=== PATIENT | male | born 1995 | race Caucasian/White ===

== ENCOUNTER 2016-11-05 02:12 | Emergency (ER) | payer OTHER ==
[~2016-11-05] VITALS: Ht 185.4 cm; Wt 70.5 kg
[2016-11-05 02:15] VITALS: Ht 185.4 cm; Wt 70.5 kg
[2016-11-05] MEDS ORDERED: SOD CHLORIDE 0.9% 1,000 ML IV STA (02:18)
[2016-11-05] MEDS ORDERED: ADENOSINE 6 ML ONE (02:28)
[2016-11-05] MEDS ORDERED: ADENOSINE 6 MG INJ IV ONE (02:30)
[2016-11-05] MEDS ORDERED: METOPROLOL 5 MG INJ ONE (02:34)
--- NOTE | 2016-11-05 02:57 | RADRPT ---
PROCEDURE: XR Chest. CLINICAL INDICATION: Chest pain. TECHNIQUE: AP Portable chest. COMPARISON: No pertinent prior examinations were submitted for comparison. FINDINGS: Defibrillator pad overlies the medial left upper chest. The cardiomediastinal silhouette is normal. The aorta is normal. No focal consolidation, pleural eff usion or pneumothorax is seen. The osseous structures are intact. IMPRESSION: No radiographic evidence of acute cardiopulmonary disease. Physician Indu Date Time Electronically viewed and signed by Reji Pascual Physician on 11/05/2016 02:57 CS/
[2016-11-05] MEDS ORDERED: METOPROLOL 5 MG INJ IV ONE (03:00)
[2016-11-05 03:07] LABS: BASOPHILS % 0.2 % (0.0-2.0); EOSINOPHILS # 0.1 10^3/ul (0.0-0.5); EOSINOPHILS % 0.7 % (0.0-7.0); HEMATOCRIT 46.3 % (42.0-52.0); LYMPHOCYTES # 4.4 10^3/ul (0.8-2.9); LYMPHOCYTES % 31.9 % (18.0-55.0); MEAN CORPUSCULAR HEMOGLOBIN 29.3 pg (29.0-33.0); MEAN CORPUSCULAR HGB CONC 34.6 g/dl (32.0-37.0); MEAN CORPUSCULAR VOLUME 84.8 fl (72.0-104.0); MEAN PLATELET VOLUME 10.2 fl (7.4-10.4); MONOCYTE # 0.5 10^3/ul (0.3-0.9); MONOCYTES % 3.6 % (0.0-13.0); NEUTROPHIL # 8.7 10^3/ul (1.6-7.5); NEUTROPHILS % 63.3 % (30.0-74.0); PLATELET COUNT 325 10^3/UL (140-415); RED BLOOD COUNT 5.46 10^6/ul (4.70-6.10); RED CELL DISTRIBUTION WIDTH 11.9 % (11.5-14.5); WHITE BLOOD COUNT 13.7 10^3/ul (4.8-10.8)
[2016-11-05 03:25] LABS: ALANINE AMINOTRANSFERASE 34 IU/L (13-69); ALBUMIN 4.9 g/dl (3.3-4.9); ALBUMIN/GLOBULIN RATIO 1.63; ALKALINE PHOSPHATASE 60 IU/L (42-121); ANION GAP 14 (8-16); ASPARTATE AMINO TRANSFERASE 22 IU/L (15-46); BLOOD UREA NITROGEN 20 mg/dl (7-20); CARBON DIOXIDE 28 mmol/L (21-31); CHLORIDE 104 mmol/L (97-110); CREATININE 1.27 mg/dl (0.61-1.24); GLUCOSE 173 mg/dl (70-220); POTASSIUM 3.2 mmol/L (3.5-5.1); SODIUM 143 mmol/L (135-144); TOTAL PROTEIN 7.9 g/dl (6.1-8.1)
[2016-11-05 03:40] LABS: B-TYPE NATRIURETIC PEPTIDE 36 PG/ML (0-125)
[2016-11-05 04:16] LABS: TROPONIN-I < 0.012 ng/ml (0.00-0.12)
[2016-11-05 04:23] LABS: BILIRUBIN,INDIRECT 0.9 mg/dl (0-1.1); BILIRUBIN,TOTAL 0.9 mg/dl (0.2-1.3)
--- NOTE | 2016-11-05 05:20 | ERD ---
ER Documentation Chief Complaint Date/Time DATE: 11/05/16 TIME: 05:18 Chief Complaint KATHERIN RA90 from home,chest pressure nonradiating pain HPI This is a 21-year-old male brought in by rescue has had palpitations on and off for the past hour. Rescue felt patient was in SVT but the Valsalva that it was able to retell. No chills. No shortness of breath no dizziness. Patient has had similar episodes in the past but has not come to the hospital for it. This episode started 1 hour ago lasted for approximately 20 minutes prior to EMS arrival ROS All systems reviewed and are negative except as per history of present illness. Allergies Allergies: Coded Allergies: No Known Allergy (Unverified , 11/05/16) PMhx/Soc Medical and Surgical Hx: pt denies Medical Hx History of Surgery: Yes (appendectomy) Anesthesia Reaction: No Hx Alcohol Use: No Hx Substance Use: Yes (marijuana) Hx Tobacco Use: No Smoking Status: Never smoker Physical Exam Vitals Vital Signs Date Time Temp Pulse Resp B/P Pulse Ox O2 Delivery O2 Flow Rate FiO2 11/05/16 03:23 101 16 133/75 99 Room Air 11/05/16 02:30 110 16 140/85 100 Room Air 11/05/16 02:15 98.6 152 18 127/81 100 Physical Exam Const: [] Head: Atraumatic Eyes: Normal Conjunctiva ENT: Normal External Ears, Nose and Mouth. Neck: Full range of motion..~ No meningismus. Resp: Clear to auscultation bilaterally Cardio: Regular rate and rhythm, no murmurs Abd: Soft, non tender, non distended. Normal bowel sounds Skin: No petechiae or rashes Back: No midline or flank tenderness Ext: No cyanosis, or edema Neur: Awake and alert Psych: Normal Mood and Affect Result Diagram: 11/05/1622411/05/16224 Results 24 hrs Laboratory Tests Test 11/05/16 02:25 White Blood Count 13.710^3/ul Red Blood Count 5.4610^6/ul Hemoglobin 16.0g/dl Hematocrit 46.3% Mean Corpuscular Volume 84.8fl Mean Corpuscular Hemoglobin 29.3pg Mean Corpuscular Hemoglobin Concent 34.6g/dl Red Cell Distribution Width 11.9% Platelet Count 58976^3/UL Mean Platelet Volume 10.2fl Neutrophils % 63.3% Lymphocytes % 31.9% Monocytes % 3.6% Eosinophils % 0.7% Basophils % 0.2% Nucleated Red Blood Cells % 0.0/100WBC Neutrophils # 8.710^3/ul Lymphocytes # 4.410^3/ul Monocytes # 0.510^3/ul Eosinophils # 0.110^3/ul Basophils # 0.010^3/ul Nucleated Red Blood Cells # 0.010^3/ul Sodium Level 143mmol/L Potassium Level 3.2mmol/L Chloride Level 104mmol/L Carbon Dioxide Level 28mmol/L Anion Gap 14 Blood Urea Nitrogen 20mg/dl Creatinine 1.27mg/dl Glucose Level 173mg/dl Calcium Level 10.0mg/dl Total Bilirubin 0.9mg/dl Direct Bilirubin 0.00mg/dl Indirect Bilirubin 0.9mg/dl Aspartate Amino Transf (AST/SGOT) 22IU/L Alanine Aminotransferase (ALT/SGPT) 34IU/L Alkaline Phosphatase 60IU/L Troponin I < 0.012ng/ml B-Type Natriuretic Peptide 36PG/ML Total Protein 7.9g/dl Albumin 4.9g/dl Globulin 3.00g/dl Albumin/Globulin Ratio 1.63 Current Medications Medications (Trade) Dose Ordered Sig/Ewelina Route PRN Reason Start Time Stop Time Status Last Admin Dose Admin Sodium Chloride (NS) 1,000 ml @ 1,000 mls/hr Q1H STAT IV 11/05/16 02:18 11/05/16 03:19 DC 11/05/16 02:53 Adenosine 12 mg 12 mg ONCE ONCE IV 11/05/16 02:30 11/05/16 02:31 DC 11/05/16 02:52 Adenosine (Adenosine) 6 ml @ ud STK-MED ONCE .ROUTE 11/05/16 02:28 11/05/16 02:29 DC Metoprolol Tartrate (Lopressor) 5 mg ONCE ONCE IV 11/05/16 03:00 11/05/16 03:01 DC 11/05/16 02:51 Metoprolol Tartrate (Lopressor) 5 mg STK-MED ONCE .ROUTE 11/05/16 02:34 11/05/16 02:35 DC Procedures/[facility] EKG: Rate/Rhythm: Sinus tachycardia QRS, ST, T-waves: [No changes consistent w/ acute ischemia] Impression: [No evidence of ischemia or arrhythmia] Chest X-ray 1V Interpreted by me: Soft Tissue: No acute abnormalities Bones: No acute abnormalities Mediastinum/Cardiac Silhouette/Lungs: [No acute abnormalities] Patient's thoracic symptoms have stabilized while in the department and are stable for outpatient follow up. Exam and work up not consistent w/ ischemia, arrhythmia, PE or dissection. Departure Diagnosis: Primary Impression: Palpitation Condition: Stable Patient Instructions: Palpitations WIN EASTMAN Nov 05, 2016 05:20
[2016-11-05 05:31] VITALS: BP 104/67; PULSE 84; RESP 16
== END 2016-11-05 05:32 | disposition home or self-care (01) ==
LOC: E/R 02:12
DX: R00.2 Palpitations (principal)
CPT/HCPCS: 36415; 71010; 80053; 83880; 84484; 85025; 93005; 96374; 96375; 99285; J0153; J7030